=== PATIENT | male | born 1955 | race Caucasian/White ===

== ENCOUNTER 2017-06-16 10:19 | Inpatient (IN) | payer BC ==
[2017-06-16 12:49] LABS: #Eosinphils 0.1 thou/uL (0.0-0.7); #Lymphocytes 1.1 thou/uL (1.20-3.40); #Monocytes 0.3 thou/uL (0.11-0.59); #Neutrophils 2.9 thou/uL (1.40-6.50); %Basophils 0.1 % (0.0-1.0); %Eosinophils 2.5 % (0.0-10.0); %Lymphocytes 25.4 % (21.0-51.0); %Monocytes 6.4 % (0.0-10.0); Mean Platelet Volume 6.2 fL (7.4-10.4); Red Blood Cell (RBC) Count 4.98 mill/uL (4.70-6.10); White Blood Cell (WBC) Count 4.4 thou/uL (4.8-10.8)
[2017-06-16 12:54] LABS: ALT (SGPT) 12 U/L (8-55); AST (SGOT) 21 U/L (5-34); Alkaline Phosphatase 90 U/L (40-150); Anion Gap 7 mmol/L (10-20); BUN (Urea Nitrogen) 7 mg/dL (8.4-25.7); Bilirubin, Total 0.4 mg/dL (0.2-1.2); Calc. Creatinine Clearance 0 mL/min (70-130); Calcium 9.1 mg/dL (7.8-10.44); Carbon Dioxide 31 mmol/L (23-31); Chloride 106 mmol/L (98-107); Estimated GFR-MDRD Greater than 90; Globulin 2.9 g/dL (2.4-3.5); Protein, Total 6.9 g/dL (5.8-8.1)
--- NOTE | 2017-06-16 13:22 | RAD ---
PORTABLE CHEST 1 VIEW: Date: 06/16/17 Time: 1300 hours HISTORY: Syncope. FINDINGS: Comparison made with exam of 05/04/17. The heart size is normal. The lungs are well expanded without confluent areas of consolidation, pneu mothorax, or pleural effusions. IMPRESSION: No radiographic evidence of acute cardiopulmonary process. POS: [facility]
[2017-06-16 13:26] LABS: Prothrombin Time 12.4 SEC (12.0-14.7)
[2017-06-16 13:32] LABS: Troponin I Less than 0.010 ng/mL (< 0.028)
[2017-06-16 13:33] LABS: PTT 27.6 SEC (22.9-36.1)
[2017-06-16 14:06] LABS: Bilirubin Negative (Negative); Blood, Urine Negative (Negative); Glucose, Urine (Dipstick) Negative (Negative); Ketone, Urine Negative (Negative); Nitrite Negative (Negative); Protein, Urine (Dipstick) Negative (Neg-Trace); Urobilinogen 0.2 mg/dL (0.2-1.0)
[2017-06-16] MEDS ORDERED: Ondansetron HCl/PF 4 MG/2 ML Vial ONE (14:09)
[2017-06-16] MEDS ORDERED: Morphine 2 MG/ML SYRINGE ONE (14:09)
[2017-06-16] MEDS ORDERED: Metoclopramide HCl 10 MG/2 ML VIAL ONE (14:09)
--- NOTE | 2017-06-16 14:13 | CT ---
NONCONTRAST HEAD CT: Date: 06/16/17 HISTORY: Syncope. COMPARISON: 05/09/17, 05/06/17, and 05/04/17. TECHNIQUE: Noncontrast head CT is performed from skull base to skull vertex. FINDINGS: Postsurgical changes of the right calvarium are again demonstrated. There is subtle hyperdensity not ed on the right frontotemporal convexity which may represent a small amount of residual subdural blo od. Small focus of air attenuation is noted along the right frontal convexity. There is a small focu s of air in the frontal horn of the right lateral ventricle. The ventricular system is prominent. No midline shift. Basilar cisterns are patent. There are malacic and probable gliotic changes of the r ight frontal lobe. Remainder of the cerebrum is unremarkable. The previously noted LEAD NITRATE PROCESSOR shunt catheter is no longer evident. There is a hypodensity anterior to the right mastoid air cells measuring 1.8 x 1.6 cm. There is swel ling of the right temporal scalp, as well as swelling of the right masseter muscle. There is partial opacification of the right mastoid air cells. IMPRESSION: 1. Prominent of the ventricular system. There is concern for hydrocephalus. 2. Hypodensity with mild peripheral enhancement anterior to the right mastoid air cell which may re present a small focus of fat. This fat may have initially been in the calvarium and is now herniated outside the calvarium. 3. Small amount of subdural blood involving the right frontotemporal and parietal convexity, as wel l as along the tentorium. 4. Opacification of the right mastoid air cells. Results of study discussed with Dr. Fournier on 06/16/17 at 1328 hours. CODE CR. POS: [facility]
[2017-06-16] MEDS ORDERED: Ondansetron HCl/PF 4 MG/2 ML Vial IVP PRN (17:00)
[2017-06-16] MEDS ORDERED: Ondansetron ODT 4 MG TAB SL PRN (17:00)
[2017-06-16] MEDS: D5 1/2 NS w/20 mEq KCL 1,000 ML IV SCH (17:14)
[2017-06-16] MEDS ORDERED: CEFAZOLIN 2 GM in Sodium Chloride 0.9% 100 ML IVPB SCH (18:45)
[2017-06-16 19:00] VITALS: BMI 29.6
[2017-06-16] MEDS ORDERED: CEFAZOLIN/Water 2 GM/20 ML SYRINGE SLOW IVP SCH (19:00)
[2017-06-16 20:05] LABS: PTT 27.3 SEC (22.9-36.1); Prothrombin Time 13.1 SEC (12.0-14.7)
--- NOTE | 2017-06-16 20:13 | CT ---
CT BRAIN LAB STUDY: Technique: 1.25 axial images are obtained through the brain. Brain window images obtained. FINDINGS: Images demonstrate extensive right sided craniotomy changes. Right frontal lobe surgical changes see n. There is now some gas in the frontal horn of the right lateral ventricle. A right sided epidural collection of post-operative fluid is seen. Some post-operative fat packing is seen in the right suprazygomatic studio musician space. In addition, t here is opacification over the right mastoid air cells. Appearance is not significantly changed sinc e previous exam from earlier in the day. POS: [facility]
--- NOTE | 2017-06-16 23:15 | HP ---
HISTORY OF PRESENT ILLNESS: Mr. Negron is a 62-year-old male who I saw in his room today. He presented this evening with syncopal episode that he had this morning after he woke from sleeping, he rolled onto the left side and a syncopal episode and dizziness occurred. He reports weakness and headache. He has had a prior history of subarachnoid hemorrhage in January from a fall from standing when hit his head on the concrete in which he required a craniotomy which was on the right side on 01/24/2017. He was sent to [facility] in [place] for rehabilitation and then on 05/08/2017, he had a reopening of the cranial incision and placement of the external ventricular drain and repair of middle fossa cerebrospinal fluid leak with fascia kena harvest and bone graft, cranioplasty with the patient's [place] skull. He did well for about 3 weeks and then developed started having symptoms in which Dr. Drake placed a Typanostomy tube in the right ear. Today, he had fluid coming from his right ear as well as a pocket of fluid underneath of the skin on the right side at the level of the ear. After he woke up with a syncopal episode this morning, he contacted Dr. Drake in [place] and he was told to come to the emergency department for further evaluation. He denies any seizure activity. Denies any chest pain. The patient admits to headache and describes the syncopal episode is a blackout. Neurosurgery was consulted as Mr. Negron is one of our patients and for further evaluation. REVIEW OF SYSTEMS: A 10-point review of systems is completed. The patient has positive headaches. Reports dizziness. Reports 2 bouts of syncopal episodes. All other review of systems is negative. Also, he reports pain to the right leg over the fascia kena graft. All other review of systems is negative, unless stated in the above HPI. PAST MEDICAL HISTORY: Includes hypothyroidism, hypertension, malignancy, tonsillar cancer, skull fracture with fluid with hydrocephalus. PAST SURGICAL HISTORY: Bilateral lens replaced in 10/2014, surgical appendectomy, tonsillectomy, craniotomy on the right, right wrist surgery and placement of Tympanostomy tube in the right ear. PSYCHIATRIC HISTORY: Depression. SOCIAL HISTORY: The patient drinks everyday less than 5 drinks per day. Currently uses tobacco every day. ALLERGIES: No known drug allergies. CURRENT MEDICATIONS: 1. Amantadine HCL 100 mg oral. 2. Gabapentin 300 mg oral. 3. Levothyroxine 100 mcg oral. 4. Pantoprazole delayed release 40 mg oral. 5. Docusate sodium 100 mg oral. 6. Mirtazapine 50 mg oral. 7. Senna 8.6 mg oral. Please reconcile these medications that the patient as I do not believe they have been updated. PHYSICAL EXAMINATION: VITAL SIGNS: Reviewed and are stable. GENERAL: The patient is alert and oriented x4, appears in no acute distress. HEENT: Normocephalic and atraumatic. Hearing is intact. Moist mucous membrane. There is some scarring over the right head where the craniotomy incision is. There is a small amount of swelling at the right ear. EYES: Pupils are equal and reactive to light. Extraocular muscles are intact. Sclerae is white, nonicteric. NECK: Trachea midline. No carotid bruits. No meningeal signs. Normal range of motion of the neck. RESPIRATORY: The patient has bilateral symmetric chest rise. Appears to have no shortness of breath. CARDIOVASCULAR: The patient has regular rate and rhythm, no murmurs, clicks or gallops. He has no distal cyanosis or clubbing. ABDOMEN: Bowel sounds are normal. No distention. No blood, no peritoneal signs. BACK: Normal to inspection. No tenderness. EXTREMITIES: Upper extremity strength and lower extremity strength are normal bilaterally. No distal cyanosis or clubbing, no calf tenderness. On the lower extremity, there is some tenderness over the incision site. An ultrasound has been completed at [facility] that showed seroma under the incision. NEUROLOGIC: Cranial nerves II-XII are grossly intact. Speech is fluent. He answers my questions appropriately. SKIN: Normal in color. Dry skin and temperature. IMAGING: Radiology report shows a small subdural hemorrhage on the right side, hydrocephalus and swelling in the scalp. ASSESSMENT: Mr. Negron is a 62-year-old male status post right-sided cranioplasty, placement of right-sided Tympanostomy tube with acute hydrocephalus and swelling of the scalp over the right ear. PLAN: We will admit Mr. Negron and plan on BrainLAB-assisted ventriculoperitoneal shunt tomorrow afternoon. We will get consents. We will get a BrainLAB protocol CT brain without contrast. We will keep him comfortable overnight and he can have a regular diet until midnight tonight and then n.p.o. There are any further questions, please feel free to contact Neurosurgery. MARYLIN
[2017-06-17] MEDS: D5 1/2 NS w/20 mEq KCL 1,000 ML IV SCH (00:54)
[2017-06-17] MEDS ORDERED: Morphine 2 MG/ML SYRINGE SLOW IVP PRN (02:59)
--- NOTE | 2017-06-17 06:34 | PRG ---
DATE OF SERVICE: 06/17/2017 I personally interviewed and examined the patient, reviewed records and imaging and agree with docum entation of Edmundo Alcazar PA-C, dated 06/16/2017. Briefly, Nigel Negron is a 62-year-old gentleman who has been a patient in our neurosurgery clinic since a traumatic brain injury in the spring of this year. He required a craniectomy and eventually was taken back to the operating room to replace his bone flap. He has been recovering from that se cond surgery. He had fluid in the inner ear and middle fossa dehiscence from the skull fracture, so at the time of the bone flap replacement we used bone graft and multiple tissue layers to try to se al it. More recently he had a tympanostomy tube placed in the right. Mr. Negron noticed some fluid coming out of tympanostomy tube recently. He had a little bit more fluid than normal yesterday when he got up and he experiences extreme vertigo. The vertigo made him pass out and he came to the hospital. CT examination of the brain showed ventriculomegaly, some ex traaxial fluid collection in the area of the cranioplasty, but good aeration of the middle ear. Jewel rosurgery was consulted. Overnight Mr. Negron has felt well. He has not had too much drainage from the right ear. He does tell me that he has had some fluid collecting under the scalp since his cranioplasty a number of we eks ago. His therapist tells him he is making excellent progress. The clinical scenario is a difficult one. His ventricles are quite a bit larger than they were at t he time of his original injury, increased intracranial pressure from poor CSF resorption system coul d be putting him at risk for the middle fossa repair not healing, fluid in the middle ear may have p rompted the tympanostomy tube and the CSF leak or bony dehiscence the middle fossa could be exacerba ting his vertigo. Certainly the extraaxial fluid collection could be CSF. All of these problems mi ght be ameliorated with placement of a ANGULAR DEVELOPER shunt. However, shunt placement carries its own risk. In balance, I think it is a good option to try ventriculoperitoneal shunting to see if decreasing the intracranial pressure and the CSF pressure will allow sealing of any temporal bone openings. Mr. Uday thompson just wants to get better and if that involves placement of a ventriculoperitoneal shunt then he is in favor of it. INFORMED CONSENT: I discussed indications, risks, benefits, and alternatives of ventriculoperitonea l shunting. The risks discussed included, but were not limited to bleeding, infection, brain damage , seizures, stroke, paralysis, continued CSF leak, delayed infection, shunt malfunction, the need fo r shunt replacement, a bowel perforation, peritonitis and cardiopulmonary complications of anesthesi a and . He understands the risks and wants to proceed. We will take Mr. Negron to the operating room this morning for Brainlab-assisted stereotactic plac ement of ventriculoperitoneal shunt.
[2017-06-17] MEDS ORDERED: FLU VACC QS2017-18 36 mo. & older 0.5 ML SYRINGE IM ONE (09:00)
[2017-06-17] MEDS ORDERED: Thrombin 5000 UNITS/5 ML VIAL ONE (09:54)
[2017-06-17] MEDS ORDERED: Sodium Chloride 0.9% 10 ML ONE (09:54)
[2017-06-17] MEDS ORDERED: Bacitracin Zinc Ointment 30 gm TUBE ONE (09:54)
[2017-06-17] MEDS ORDERED: Fentanyl 100 MCG/2 ML VIAL ONE ×2 (10:06→14:25)
[2017-06-17] MEDS ORDERED: CEFAZOLIN/Water 2 GM/20 ML SYRINGE ONE (10:39)
[2017-06-17] MEDS ORDERED: Fentanyl 250 MCG/5 ML VIAL ONE (10:52)
[2017-06-17] MEDS ORDERED: Vancomycin HCl 20 MG, Gentamicin (PEDI) 8 MG, Admixture Fee 1 EACH in Sodium Chloride 0... FS SCH (12:00)
[2017-06-17] MEDS ORDERED: Acetaminophen 325 MG TAB PO PRN (13:42)
[2017-06-17] MEDS ORDERED: tiZANidine HCl 4 MG TAB PO PRN (13:42)
[2017-06-17] MEDS ORDERED: Acetaminophen/Codeine 30-300mg Tablet PO PRN (13:42)
[2017-06-17] MEDS ORDERED: Bisacodyl 10 MG SUPP PR PRN (13:42)
[2017-06-17] MEDS ORDERED: Promethazine HCl 25 MG/ML VIAL SLOW IVP PRN (14:16)
[2017-06-17] MEDS ORDERED: Lidocaine 1% PF 5 ML VIAL ONE (14:16)
[2017-06-17] MEDS ORDERED: hydrALAZINE 20 MG/ML VIAL ONE ×2 (14:16→15:03)
[2017-06-17] MEDS ORDERED: Ondansetron HCl/PF 4 MG/2 ML Vial IVP PRN (14:16)
[2017-06-17] MEDS ORDERED: Promethazine HCl 25 MG/ML VIAL IM PRN (14:16)
[2017-06-17] MEDS ORDERED: Propofol 200 MG/20 ML VIAL ONE (14:16)
[2017-06-17] MEDS ORDERED: Labetalol HCl 100 MG/20 ML VIAL ONE ×2 (14:16→14:18)
[2017-06-17] MEDS ORDERED: Glycopyrrolate 0.2 MG/ML 5 ML SYRINGE ONE (14:16)
[2017-06-17] MEDS ORDERED: PHENYLEPHRINE-NS 100 MCG/ML 10 ML SYRINGE ONE (14:16)
[2017-06-17] MEDS ORDERED: Cefepime 1 GM VIAL ONE (14:16)
--- NOTE | 2017-06-17 14:26 | OP ---
DATE OF PROCEDURE: 06/17/2017 SURGEON: Mirna Vivas M.D. CHILDREN'S MINISTRY DIRECTOR: Edmundo Alcazar PA-C. PREOPERATIVE INDICATION: Prevent neurological deterioration. PREOPERATIVE DIAGNOSES: Posttraumatic hydrocephalus, possible continued middle fossa CSF leak, extr a-axial fluid collection, ventriculomegaly. POSTOPERATIVE DIAGNOSES: Posttraumatic hydrocephalus, possible continued middle fossa CSF leak, ext ra-axial fluid collection, ventriculomegaly. Right side fluid collection from fascia kena graft tru vest. OPERATIVE PROCEDURE: BrainLAB stereotactic assisted placement of ventriculoperitoneal shunt. Steri le tapping a fluid collection and wrapping of thigh. PREOPERATIVE MEDICATIONS: Ancef 2 grams IV. DRAIN NUMBER: Zero. DRAIN TYPE: None. OPERATIVE DICTATION: The patient was brought to the operating room. General endotracheal anesthesi a was induced. The patient was placed supine on the operating table with a slight bump under the ri ght shoulder and head turned gently to the left. The head was immobilized in a Crain rush clinical trial head. Using the BrainLAB protocol, preoperative CT scan service matching technique and the [employer] system, we generated 3 dimensional stereotactic spacer on the patient's head for navigation. We checked our registration with surface landmarks and found that accurate. Hair was removed from the right side of the scalp, neck, the chest and the abdomen. Hair was removed from the thigh all with electric clippers. The abdomen, chest, neck, and right side of the scalp was sterilely prepped and draped. We opened a linear incision at the parietooccipital region on the right side. We controlle d bleeding with bipolar and monopolar cautery. We dissected to the skull and then used a high speed perforating bit to place a bur hole. We waxed the edges of the bur hole and coagulated the dura. We turned our attention to passing the peritoneal portion of the shunt. The patient had previous ne ck irradiation for tonsillar cancer. We needed to pass a posterior to the irradiated skin over the clavicle and then over the chest to the midline in the abdomen. We did this carefully from the cran ial incision to horizontal incision on the clavicle and from the clavicle incision to a midline subx iphoid area where we made subxiphoid incision. After the tunneling was done, we passed the peritone al catheter from the cranial incision all the way to the abdominal incision. We then opened the peritoneum through our midline and subxiphoid incision, we incised the fascia in the midline, we placed a self-retaining retractor. We then brought up a loop of peritoneum between 2 hemostats. We cut the edge of the peritoneum, placed the hemostats on the edge of the peritoneum and a pursestring silk suture. We irrigated there and brought back to the cranial incision. Using the navigation system, we generated the trajectory for ventricular shunt, ventricular catheter place ment. We used this angle for passing our ventricular catheter. We coagulated the edges of the dura . We opened in a cruciate fashion with a 15 blade knife and coagulated back the edges. Using our p lanned trajectory, we passed the peritoneal catheter through 3.5 cm of parenchyma into the occipital horn of right lateral ventricle. We then removed the stylette and advanced to a depth of about 9-1 0 cm. There was brisk CSF flow. We connected to a Delta bur hole valve to the ventricular catheter and reinforced that connection with silk suture. Before connecting the valve, we treated our syste m with antibiotics by placing 2 mL of sterile saline into the ventricular catheter, carrying 10 mg o f vancomycin and 4 mg of gentamicin. Just after placing the antibiotics, we attached our bur hole v alve, reinforced that attachment and then connected the distal portion of the valve to the peritonea l catheter and reinforced that connection with silk sutures as well. We tacked the edges of the luzmaria ve down to the periosteum. We irrigated our cranial incision with bacitracin irrigation. We closed this in anatomic layers. We closed shoulder incision in anatomic layers. At the abdominal incisio n, CSF flow from the distal portion of the peritoneal catheter and passed the catheter into the charley toneal space. We tied our silk pursestring suture around it after removing hemostats and we closed abdominal incision in anatomic layers. Before closure V2, V3 incisions, we treated them with vancom ycin powder. Sterile dressings were applied. After undraping the cranial shoulder and abdominal incisions, we prepped the thigh. An 18 gauge nee dle passed into the subdural fluid collection and the fluid was removed. We placed a sterile dressi ng over the needle entry site and then wrapped the leg with Josue bandage. This was a clean case and no contamination.
[2017-06-17] MEDS ORDERED: hydrALAZINE 20 MG/ML VIAL SLOW IVP PRN (15:14)
[2017-06-17] MEDS: Morphine 2 MG/ML SYRINGE SLOW IVP PRN ×3 (16:56→21:35)
[2017-06-17] MEDS: Gabapentin 300 MG CAP PO SCH ×2 (16:56→20:16)
[2017-06-17] MEDS: Docusate 100 MG CAP PO SCH (20:16)
[2017-06-17] MEDS: Mirtazapine 15 MG TAB PO SCH (20:16)
[2017-06-17] MEDS: Melatonin 3 MG TAB PO SCH (21:11)
[2017-06-18] MEDS: Vancomycin HCl 1.5 GM in Sodium Chloride 0.9% 250 ML 300 ML IVPB SCH ×2 (00:39→12:15)
[2017-06-18] MEDS: Morphine 2 MG/ML SYRINGE SLOW IVP PRN ×7 (04:11→21:46)
[2017-06-18] MEDS: Sodium Chloride 0.9% 1,000 ML IV SCH ×4 (06:10→17:25)
--- NOTE | 2017-06-18 07:33 | PRG ---
DATE OF SERVICE: 06/18/2017 I saw Nigel Negron this morning in his hospital bed. He is 1 day out from our BrainLAB stereotacti c assisted placement of ventriculoperitoneal shunt and tapping of the fluid collection in the latera l thigh. Postoperatively noted some abdominal pain. This morning he is in significant pain. He sa ys he is not passing gas. The cranial and shoulder incision feel fine. On examination, there is so me guarding, especially the right-sided abdominal musculature. There is no rebound on the left. Th e right-sided muscles are tight enough that eliciting no rebound is less reliable. His neurological examination is stable. My plan for Mr. Negron is to get a CT of the abdomen today. There is going to be some air from campos ving his peritoneum opened, but we will see if there is any unusual findings. We will also get to s ee the course of the ventriculoperitoneal shunt. I may have General Surgery visit him if there are findings on the CT scan that look concerning.
--- NOTE | 2017-06-18 07:39 | HP ---
DATE OF SERVICE: 06/18/2017 Mr. Negron is a 62-year-old male I saw in his room this morning. He is status post sterotactic pl acement of a ventriculoperitoneal shunt for hydrocephalus and aspiration of a hematoma on the right leg. Mr. Negron was in moderate amount of pain last night. Postoperatively, he required several doses of morphine. The majority of his pain is in his abdomen. This morning we will get a CT scan of his abdomen without contrast. His vital signs overnight have been stable and there are no new ne urologic deficits on exam. He is able to answer my questions appropriately. He has not been able t o ambulate yet; however, we will work on that today. I will contact Radiology. Yesterday we are ab le to get about 5 mL of gelatinous hematoma out of the seroma in his right thigh. I will contact [facility] today and take him down and do an aspiration under ultrasound guidance of the hematoma. He can work with physical therapy today. If there are any other questions, please feel free to contact Neurosurgery.
[2017-06-18] MEDS: Levothyroxine Sodium 100 MCG TAB PO SCH (09:25)
[2017-06-18] MEDS: Senokot 8.6 MG TAB PO SCH (09:25)
[2017-06-18] MEDS: Amantadine HCl 100 mg Capsule PO SCH (09:25)
[2017-06-18] MEDS: Pantoprazole 40 MG GRANULES PACKET PO SCH (09:26)
[2017-06-18] MEDS: Docusate 100 MG CAP PO SCH ×2 (09:26→21:15)
[2017-06-18] MEDS: Gabapentin 300 MG CAP PO SCH ×3 (09:26→21:15)
--- NOTE | 2017-06-18 09:27 | CT ---
ABDOMEN CT WITHOUT IV CONTRST: History: 62-year-old male with abdominal pain following SHIPFITTERS SUPERVISOR shunt placement yesterday. FINDINGS: There are some small pleural effusions and some pleural based parenchymal changes, evidence for subs egmental atelectasis. There is a ventriculoperitoneal shunt tube which has been placed overlying the anterior lateral aspect of the liver in the right upper quadrant. There is some minimal free intrap eritoneal air. This is presumed to be related to the recent surgery. Small hiatal hernia. Visualized liver, gallbladder, pancreas, spleen, adrenal glands are unremarkable. No evidence for significant free intraperitoneal fluid or retroperitoneal hematoma. IMPRESSION: Ventriculoperitoneal shunt tube placed lying in the anterior right upper quadrant partially between the liver and right hemidiaphragm. Minimal pleural and parenchymal opacities in the lung bases possi trevin subsegmental atelectasis and pneumonitis. Small hiatal hernia. No evidence for significant free intraperitoneal fluid or retroperitoneal hematoma. POS: [facility]
--- NOTE | 2017-06-18 15:56 | ULT ---
EXAM: SOFT TISSUE ULTRASOUND 06/18/17 HISTORY: Right thigh seroma. Status post fascia kena graft. COMPARISON: None. FINDINGS: Static images of the right thigh are performed. There is a hypoechoic echotexture lesion measuring 2 0 x 3 cm. The majority of this lesion has a complex echotexture suggesting a hematoma, rather than a simple seroma. Given the complexity, ultrasound guided fine needle aspiration is not warranted or r ecommended at this time. IMPRESSION: Probable hematoma in the right thigh. The findings were reviewed with Dr. Ortega Cain's PA who was present during the examination, 06/18/17 at 11:06 a.m. Code CR POS: [facility]
--- OUTSIDE RECORDS SUMMARY | 2017-06-18 18:27 | XMS | Clinical Summary ---
:1955 Author Organization [facility] Address [address] [place] [address] Phone Care Team Providers Name Role Phone , Primary Care Provider Unavailable Allergies No Known Allergies Current Medications Prescription Sig. Disp. Refills Start Date End Date Status aspirin 81 MG EC tablet Take 81 mg by mouth Active daily. bromfenac (PROLENSA) 0.07 Apply to eye(s) Active % Drop daily. levothyroxine (SYNTHROID, Take 100 mcg by Active LEVOTHROID) 100 MCG mouth Every morning tablet on an empty stomach. loteprednol (LOTEMAX) 0.5 1 drop 4 (four) Active % ophthalmic suspension times daily. lovastatin (MEVACOR) 20 Take 20 mg by mouth Active MG tablet nightly. polymyxin B 1 drop. Active sulf-trimethoprim (POLYTRIM) 10,000 unit- 1 mg/mL Drop Active Problems Not on file Social History Tobacco Use Types Packs/Day Years Used Date Never Smoker Alcohol Use Drinks/Week oz/Week Comments Yes 12 Cans of beer 7.2 Sex Assigned at Date Recorded Not on file Last Filed Vital Signs Vital Sign Reading Time Taken Blood Pressure 140/90 11/13/2016 11:30 AM CDT Pulse 71 11/13/2016 11:30 AM CDT Temperature 36.8 C (98.2 F) 11/13/2016 11:11 AM CDT Respiratory Rate 15 11/13/2016 11:30 AM CDT Oxygen Saturation 97% 11/13/2016 11:30 AM CDT Inhaled Oxygen Concentration - - Weight 90.7 kg (200 lb) 11/12/2016 11:27 AM CDT Height 172.7 cm (5' 7.99") 11/12/2016 11:27 AM CDT Body Mass Index 30.42 11/12/2016 11:27 AM CDT Plan of Treatment Not on file Implants Implanted Type Area Machinist First Class Device Expiration Model / Identifier Date Serial / Lot Iol Acrysof Toric [id number] - [id number] Ophthalmology Left: [facility]:SURG 04/24/2019 [id number] / Implanted:Qty: 1 on 10/16/2016 by Mario Marie MD Eye / [id number] Iol Acrysof Toric [id number] - [id number] Ophthalmology Right: [facility]:SURG 11/22/2020 [id number] / Implanted:Qty: 1 on 11/13/2016 by Mario Marie MD Eye [id number] / N/A Results Not on filefrom Last 3 Months
[2017-06-18] MEDS: Mirtazapine 15 MG TAB PO SCH (21:14)
[2017-06-18] MEDS: Melatonin 3 MG TAB PO SCH (21:15)
[2017-06-19] MEDS: Sodium Chloride 0.9% 1,000 ML IV SCH ×2 (04:36→11:38)
--- NOTE | 2017-06-19 06:31 | PRG ---
DATE OF SERVICE: 06/19/2017 Mr. Negron is a 62-year-old male who I saw in his room this morning. Yesterday I went with him do wn to ultrasound, had a soft tissue ultrasound of the right hematoma/seroma on his right leg. He wa s advised not to put a needle in it to drain it, so I wrapped with an leonela band tightly so that it wo uld help to resolve over time. His vital signs overnight have been stable. He is having less abdom inal pain this morning than he did yesterday. I will have physical therapy see him today and hopefu lly get him to walk around as much as possible. If there are any further questions, please feel free to contact Neurosurgery.
--- NOTE | 2017-06-19 06:50 | PRG ---
DATE OF SERVICE: 06/19/2017 Mr. Negron is 2 days out from placement of a ventriculoperitoneal shunt. The abdominal pain he campos d yesterday has improved markedly. The thigh is wrapped and it feels a bit better with the wrap on. Still pain control is requiring some prescription strength pain medication. He is ambulatory and he is looking forward to breakfast this morning. The return of his hunger is a good sign as well. Mrs. Negron is nervous about taking him home with regards to pain control. Once he is taking oral analgesics and has reasonable pain control on those he can be discharged. That could be as early a s afternoon today.
[2017-06-19] MEDS: Levothyroxine Sodium 100 MCG TAB PO SCH (09:04)
[2017-06-19] MEDS: Senokot 8.6 MG TAB PO SCH (09:04)
[2017-06-19] MEDS: Gabapentin 300 MG CAP PO SCH ×2 (09:04→14:16)
[2017-06-19] MEDS: Amantadine HCl 100 mg Capsule PO SCH (09:04)
[2017-06-19] MEDS: Pantoprazole 40 MG GRANULES PACKET PO SCH (09:04)
[2017-06-19] MEDS: Docusate 100 MG CAP PO SCH (09:05)
[2017-06-19] MEDS: Acetaminophen/Codeine 30-300mg Tablet PO PRN ×2 (09:05→14:16)
[2017-06-19 11:43] VITALS: BP 114/72; TEMP 97.2
== END 2017-06-19 14:50 | disposition home or self-care (01) | DRG 32 ==
LOC: ERS 10:19 → SURG B 16:43
PROVIDERS: ADMIT Neurological Surgery; ATTEND Neurological Surgery
PROC: 00163J6 Bypass Cerebral Ventricle to Peritoneal Cavity with Synthetic Substitute, Percutaneous Approach (ICD-10-PCS; principal; 2017-06-17)
PROC: 0J9C3ZZ Drainage of Pelvic Region Subcutaneous Tissue and Fascia, Percutaneous Approach (ICD-10-PCS; 2017-06-17)
DX: G91.3 Post-traumatic hydrocephalus, unspecified (principal); L76.34 Postprocedural seroma of skin and subcutaneous tissue following other procedure; G93.89 Other specified disorders of brain; E03.9 Hypothyroidism, unspecified; I10 Essential (primary) hypertension; Z85.89 Personal history of malignant neoplasm of other organs and systems; F32.9 Major depressive disorder, single episode, unspecified; F17.210 Nicotine dependence, cigarettes, uncomplicated; W18.30XA Fall on same level, unspecified, initial encounter; Z91.81 History of falling; Y92.019 Unspecified place in single-family (private) house as the place of occurrence of the external cause; Z87.820 Personal history of traumatic brain injury; R42 Dizziness and giddiness; Z96.89 Presence of other specified functional implants; R55 Syncope and collapse
CPT/HCPCS: 36415; 70450; 71010; 74150; 76999; 80053; 81003; 82553; 84484; 85025; 85610; 85730; 93005; 96361; 96365; 96375; A4216; G8978-GP-CI; G8979-GP-CI; G8980-GP-CI; J0360; J0692; J1580; J2001; J2270; J2405; J2704; J2765; J3010; J3370; J3490; J7050

== ENCOUNTER 2017-08-05 13:39 | Outpatient (CLI) | payer BC ==
--- NOTE | 2017-08-05 15:51 | CT ---
CT HEAD WITHOUT CONTRAST 08/05/17 Multiple axial tomograms obtained through the head without IV enhancement. Comparison made to head CT of 06/16/17 and 05/06/17. Ventriculostomy tube has been place since the prior study. This tube enters via the posterior right p arietal lobe and enters the right lateral ventricle. The tip of the tube overlies the anterior horn o f the right lateral ventricle. There is mild prominence of the ventricles. Postop craniotomy changes on the right again noted. There is thickening and increased density involving the dura along the oper ative site. Small amount of pneumocephalus is present at the operative site and there is a tiny air p ocket in the anterior horn of the right lateral ventricle. No acute hemorrhage or mass effect. IMPRESSION: 1. Ventriculostomy catheter has been placed. There is mild ventricular prominence. 2. Postoperative changes again noted. Pneumocephalus as described. POS: [facility]
== END 2017-08-05 13:40 | disposition home or self-care (01) ==
LOC: TBSIIMAG 13:39
PROVIDERS: ATTEND Neurological Surgery
DX: G91.9 Hydrocephalus, unspecified (principal); S06.319D Contusion and laceration of right cerebrum with loss of consciousness of unspecified duration, subsequent encounter; Z98.2 Presence of cerebrospinal fluid drainage device
CPT/HCPCS: 70450

== ENCOUNTER 2017-09-02 13:29 | Emergency (ER) | payer BC ==
--- NOTE | 2017-09-02 14:25 | CT ---
HEAD CT NONCONTRAST: Comparison: 08-05-17 History: Headache. FINDINGS: Re-demonstration of right posterior parietal approach ventriculostomy with tip at the frontal horn ri ght lateral ventricle. Mild extraaxial hyperdensity overlying the right convexity remains. Mild intra ventricular air is again seen. There is no new mass effect or midline shift. Encephalomalacia of the right frontal lobe and right frontal parietal craniotomy again seen. IMPRESSION: Grossly stable head CT. There remains extraaxial density, which is thin and linear in configuration o verlying the right convexity, which could relate to small volume of extraaxial hemorrhage, and/or dur al hyperplasia. POS: [facility]
[2017-09-02 16:40] LABS: Bilirubin Negative (Negative); Blood, Urine Negative (Negative); Clarity CLEAR (Clear); Glucose, Urine (Dipstick) Negative (Negative); Leukocyte Negative (Negative); Nitrite Negative (Negative); Protein, Urine (Dipstick) Negative (Neg-Trace); Specific Gravity, Urine 1.016 (1.002-1.036); Urobilinogen 0.2 mg/dL (0.2-1.0); pH, Urine 5.5 (5.0-9.0)
[2017-09-02] MEDS ORDERED: Acetaminophen 500 MG TAB ONE (16:53)
[2017-09-02 17:08] LABS: #Eosinphils 0.1 thou/uL (0.0-0.7); #Monocytes 0.5 thou/uL (0.11-0.59); #Neutrophils 4.6 thou/uL (1.40-6.50); %Basophils 0.4 % (0.0-1.0); %Eosinophils 0.9 % (0.0-10.0); %Lymphocytes 16.6 % (21.0-51.0); %Monocytes 7.4 % (0.0-10.0); %Neutrophils 74.6 % (42.0-75.0); Hemoglobin 17.4 g/dL (14.0-18.0); Mean Corpuscular HGB CONC 34.1 g/dL (32.0-36.0); Mean Corpuscular Hemoglobin 29.6 pg (27.0-31.0); Platelet Count 249 thou/uL (130-400); RBC Distribution Width 14.1 % (11.5-14.5); Red Blood Cell (RBC) Count 5.87 mill/uL (4.70-6.10); White Blood Cell (WBC) Count 6.2 thou/uL (4.8-10.8)
[2017-09-02 17:14] LABS: INR-International Normal Ratio 0.9; PTT 29.7 SEC (22.9-36.1); Prothrombin Time 12.6 SEC (12.0-14.7)
[2017-09-02] MEDS ORDERED: Aspirin/APAP/Caffeine Tab (Excedrin Migraine) PO SCH (17:15)
[2017-09-02 17:34] LABS: ALT (SGPT) 14 U/L (8-55); AST (SGOT) 13 U/L (5-34); Albumin 4.3 g/dL (3.4-4.8); Alkaline Phosphatase 82 U/L (40-150); Anion Gap 12 mmol/L (10-20); BUN (Urea Nitrogen) 10 mg/dL (8.4-25.7); Bilirubin, Total 0.4 mg/dL (0.2-1.2); Calc. Creatinine Clearance 0 mL/min (70-130); Calcium 9.4 mg/dL (7.8-10.44); Carbon Dioxide 25 mmol/L (23-31); Chloride 105 mmol/L (98-107); Estimated GFR-MDRD Greater than 90; Globulin 2.9 g/dL (2.4-3.5); Glucose 113 mg/dL (80-115); Protein, Total 7.2 g/dL (5.8-8.1); Sodium 138 mmol/L (136-145)
--- NOTE | 2017-09-02 19:31 | RAD ---
SHUNTOGRAM: 09/02/17 HISTORY: Headache. FINDINGS/IMPRESSION: Postop changes of right craniotomy are seen. There is a right sided ventriculoperitoneal shunt with t he caudal end to the right of midline. The shunt tubing descends along the right side of the neck int o the chest and the right side of the abdomen, loops in the distal abdomen/pelvis with tip directed s uperiorly in the left lower quadrant. The shunt tubing is intact. The heart size is normal. The lungs are well expanded and clear. There is fecal material in the colon . The bowel gas pattern is unremarkable. There are degenerative changes in the spine. POS: [facility]
--- NOTE | 2017-09-03 06:08 | CON ---
DATE OF CONSULTATION: 09/02/2017 HISTORY OF PRESENT ILLNESS: Mr. Negron is a 62-year-old male, who presents tonight with dizziness and headache for the last 3 days. He had a ventriculoperitoneal shunt placed by Dr. Vivas on and today's CT scan of the head looks similar to that of the CT scan of the head on 7. The shuntogram was performed and shows it is working well. He has no significant lab values on e xam and no new neurologic deficits on exam. He has a history of a craniotomy for subdural hematoma a nd a cranioplasty with Neurosurgery in which he developed a hydrocephalus thereafter. The THREAD SPOOLER shunt w as placed for the hydrocephalus. Tonight CT of the brain is negative and shows shunt with good place ment. ALLERGIES: No known drug allergies. CURRENT MEDICATIONS: No medications recorded. PAST MEDICAL HISTORY: Includes endocrine disease, hypothyroidism, hypertension, tonsillar cancer, sk ull fracture with hydrocephalus, ventriculoperitoneal shunt placed on 06/17/2017. PAST SURGICAL HISTORY: Bilateral lens replaced on 10/2016, appendectomy, tonsillectomy, craniotomy o n 01/25/[address] Vivas. PAST PSYCHIATRIC HISTORY: Depression. SOCIAL HISTORY: The patient drinks every day, less than 5 drinks per day. Denies any drug use. He does not use tobacco. REVIEW OF SYSTEMS: The patient reports headache. He reports dizziness with signs of vertigo with th e room spinning. These have been going on for the last 3 days. He also has right-sided muscle spasm s. All other review of systems is negative except for that stated in the above HPI. PHYSICAL EXAMINATION: VITAL SIGNS: Blood pressure was 150/93, pulse 82, respirations 18, temperature 98.7, pain is 8, O2 s ats 100% on room air. GENERAL: The patient appears nontoxic. He is alert and oriented to person, place, and time. GCS of 15. HEENT: Head is normocephalic, atraumatic. Hearing is intact. Moist mucous membranes. Trachea is m idline. EYES: Pupils are equal and reactive to light. Extraocular muscles are intact. Sclerae is white, no nicteric. NECK: The patient has normal range of motion in the neck. His trachea is midline. RESPIRATORY: The patient has bilateral symmetric chest rise and has no shortness of breath. CARDIOVASCULAR: The patient has regular rate and rhythm. EXTREMITIES: No distal cyanosis or clubbing noted. He has +2 pulses in the upper and lower extremit ies bilaterally in the radial artery and the lower posterior tibial pulses are +2. Capillary refill was normal. Upper extremity exam includes findings of normal range of motion, normal strength. Lowe r extremity, there is no dermatomal sensory loss. He has normal strength in the lower extremity and normal range of motion. NEUROLOGIC: Cranial nerves II through XII are grossly intact. Speech is fluent, answers my question s appropriately. GCS of 15. There are no focal sensory deficits or motor deficits. IMAGING: CT shows grossly stable head CT, remains extra axial density, it was thin and linear in cur vature curved over the right convexity, which could related to small volume extraaxial hemorrhage or dural hyperplasia. A shuntogram shows postoperative changes of right craniotomy. There is right-lilian ed ventriculoperitoneal shunt with caudal end to the right of midline. The shunt tubing descends garo ng the right side of the neck into the chest and the right side of the abdomen, loops in the distal a bdomen and pelvis with tip directed superiorly in the left lower quadrant. The shunt tubing is intac t and the heart size is normal. Lungs are well expanded and clear. ASSESSMENT: Nigel Negron is a 62-year-old male with history of shunt placement in 05/2017. PLAN: The shuntogram shows that there is continuity in the shunt. The size of ventricles and change in that size on clinical exam are normal. The shunt I am able to pump, which shows it is functionin g well. The ventricles are the same size since 07/2017, so it is unlikely that the shunt is not work ing. I will arrange an office visit in 3 weeks after he has stopped the new blood pressure medicatio ns. This is not a neurosurgical emergency, but if there is new neurologic deficits, please let us kn ow.
== END 2017-09-02 21:14 | disposition home or self-care (01) ==
LOC: ERS 13:29
DX: R51 Headache (principal); R42 Dizziness and giddiness; E03.9 Hypothyroidism, unspecified; I10 Essential (primary) hypertension; F32.9 Major depressive disorder, single episode, unspecified; F17.220 Nicotine dependence, chewing tobacco, uncomplicated
CPT/HCPCS: 36415; 70450; 75809; 80053; 81003; 85025; 85610; 85730; 87804

== ENCOUNTER 2017-10-19 11:56 | Observation (INO) | payer BC ==
[~2017-10-19 11:56] MED LIST: ISOVUE-370 76%-LOCM 1 ML ONE
[2017-10-19] MEDS ORDERED: Lorazepam 2 MG/ML VIAL ONE (12:15)
[2017-10-19] MEDS ORDERED: Acetaminophen 500 MG TAB ONE (12:15)
[2017-10-19] MEDS ORDERED: Metoclopramide HCl 10 MG/2 ML VIAL ONE (12:15)
[2017-10-19 12:38] LABS: #Eosinphils 0.1 thou/uL (0.0-0.7); #Lymphocytes 0.6 thou/uL (1.20-3.40); #Monocytes 0.3 thou/uL (0.11-0.59); #Neutrophils 9.2 thou/uL (1.40-6.50); %Basophils 0.3 % (0.0-1.0); %Eosinophils 0.5 % (0.0-10.0); %Lymphocytes 5.4 % (21.0-51.0); %Neutrophils 90.8 % (42.0-75.0); Hemoglobin 16.7 g/dL (14.0-18.0); Mean Corpuscular Hemoglobin 31.3 pg (27.0-31.0); Mean Corpuscular Volume 89.5 fl (80.0-94.0); Mean Platelet Volume 6.1 fL (7.4-10.4); Platelet Count 175 thou/uL (130-400); RBC Distribution Width 14.5 % (11.5-14.5); Red Blood Cell (RBC) Count 5.33 mill/uL (4.70-6.10); White Blood Cell (WBC) Count 10.1 thou/uL (4.8-10.8)
[2017-10-19 12:44] LABS: Lavender RECEIVED; Red RECEIVED
[2017-10-19 12:45] LABS: Prothrombin Time 13.2 SEC (12.0-14.7)
[2017-10-19 12:47] LABS: D-Dimer Test 2.56 *mcg/mL (0.27-0.43)
[2017-10-19 12:55] LABS: ALT (SGPT) 22 U/L (8-55); AST (SGOT) 21 U/L (5-34); Albumin 4.4 g/dL (3.4-4.8); Alkaline Phosphatase 95 U/L (40-150); Anion Gap 17 mmol/L (10-20); BUN (Urea Nitrogen) 11 mg/dL (8.4-25.7); Bilirubin, Total 0.5 mg/dL (0.2-1.2); Calc. Creatinine Clearance 0 mL/min (70-130); Carbon Dioxide 20 mmol/L (23-31); Chloride 105 mmol/L (98-107); Estimated GFR-MDRD 67; Globulin 2.9 g/dL (2.4-3.5); Glucose 131 mg/dL (80-115); Potassium 3.9 mmol/L (3.5-5.1); Protein, Total 7.3 g/dL (5.8-8.1); Sodium 138 mmol/L (136-145)
[2017-10-19 12:58] LABS: CKMB 1.4 ng/mL (0-6.6); Troponin I Less than 0.010 ng/mL (< 0.028)
--- NOTE | 2017-10-19 14:05 | CT ---
CT BRAIN WITHOUT CONTRAST: Date: 10/19/17 HISTORY: New onset seizure. History of traumatic brain injury, ROUGH RICE TENDER shunt. FINDINGS: Comparison made with exam of 09/02/17. Encephalomalacia of the right frontal lobe and the right frontoparietal craniotomy are again seen. Th e right posterior parietal approach ventriculostomy with tip in the frontal horn of the right lateral ventricle is unchanged in position. A small amount of intraventricular air is again seen. Mild extra -axial hyperdensity overlying the right convexity is stable. No evidence of acute infarct, hemorrhage , midline shift, or new abnormal extra-axial fluid collections are noted. IMPRESSION: Stable exam. No acute process. POS: [facility]
--- NOTE | 2017-10-19 14:28 | RAD ---
SHUNTOGRAM: Date: 10/19/17 HISTORY: New onset seizure. History of traumatic brain injury. FINDINGS/IMPRESSION: Comparison made with exam of 09/02/17. Two views of the skull, single view of the neck, chest, abdomen, and pelvis were obtained. There are postop changes of right craniotomy with a right-sided ventriculoperitoneal shunt with the s uperior and the frontal region to the right of midline. The shunt tubing descends along the right side of the neck and into the chest and the right side of t he abdomen, loops in the distal abdomen/pelvis, with tip projected superiorly in the left lower quadr ant. The shunt tubing is intact. The heart size is borderline. There is pulmonary vascular congestion. No pneumothoraces or large effu sions are seen. The bowel gas pattern is unremarkable. There are degenerative changes in the spine. POS: [facility]
--- NOTE | 2017-10-19 15:29 | CT ---
CT PULMONARY ANGIOGRAM WITH IV CONTRAST AND 3D POSTPROCESSING: Date: 10/19/17 HISTORY: Elevated D-Dimer, tachycardia. FINDINGS: No filling defects are seen in the well opacified pulmonary arterial vasculature to suggest pulmonary embolism. There are vascular calcifications without evidence of thoracic aortic aneurysm or dissecti on. No pleural or pericardial effusions are seen. There are dependent changes of the posterior lung f ields. There are degenerative changes in the spine. IMPRESSION: No CT evidence of pulmonary embolism. POS: [facility]
[2017-10-19] MEDS ORDERED: Ondansetron HCl/PF 4 MG/2 ML Vial IVP PRN ×2 (17:55→18:32)
[2017-10-19] MEDS ORDERED: Acetaminophen 325 MG TAB PO PRN (17:55)
[2017-10-19] MEDS ORDERED: Ondansetron ODT 4 MG TAB SL PRN (17:55)
[2017-10-19] MEDS ORDERED: Lorazepam 2 MG/ML VIAL SLOW IVP PRN ×2 (17:56→18:32)
[2017-10-19 18:21] VITALS: BMI 32.8
[2017-10-19 18:26] LABS: Lactic Acid 1.6 mmol/L (0.5-2.2)
[2017-10-19] MEDS ORDERED: cloNIDine 0.1 MG TAB PO PRN (18:32)
[2017-10-19] MEDS ORDERED: hydrALAZINE 20 MG/ML VIAL SLOW IVP PRN (18:32)
[2017-10-19] MEDS ORDERED: Ondansetron ODT 4 MG TAB PO PRN (18:32)
[2017-10-19] MEDS ORDERED: Acetaminophen 500 MG TAB PO PRN (18:32)
--- NOTE | 2017-10-19 19:29 | CON ---
DATE OF CONSULTATION: 10/19/2017 HISTORY OF PRESENT ILLNESS: Mr. Negron is a 62-year-old male who has a history of 8 months out fro m a TBI, in which he received a frontotemporal parietal craniotomy for expanding subdural hematoma wi th midline shift after traumatic brain injury from a kick in the head by his horse. This was on 10/2016. 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 His shunt on exam today is compressible. There is no tenderness around the shunt. He comes in today for breakthr ough seizure that he had at [facility]. Witnesses say that he stared off. He was staring off and was un responsive and got very tense and held his breath and turned purple in the face. This lasted for ran ge of 3-5 minutes. Mr. Negron does not remember any of that today. This was witnessed by his son and some members at his [facility]. He is currently in therapy at here in [place], recovering from a tra umatic brain injury in 01/2017. He has been doing well; however, this is his first seizure. He was taking levetiracetam after the traumatic brain injury and was taken off that in 02/2017 and has been on gabapentin until about a month ago. He has been seeing Dr. De Oliveira in Neurology for symptoms of h eadache and status post traumatic brain injury. PHYSICAL EXAMINATION: NEUROLOGIC: Today, he is neurologically intact. He answers my questions appropriately, has a GCS of 15. His prolactin levels and lactate levels were mildly elevated and he describes a postictal phase . Neurosurgery was consulted because he is a former patient of ours and to assess the ventriculoperi toneal shunt and head CT. After head had CT today had showed stable exam, no acute process. Shuntog theodore from today shows that the ventriculoperitoneal shunt tubing descends along the right side of the neck and into the chest and the right side of the abdomen, loops in the distal abdomen and pelvis and the tip projected superiorly in the left lower quadrant. The shunt tubing is intact. The patient d enies any chest pain, shortness breath or fevers. ALLERGIES: No known drug allergies. CURRENT MEDICATIONS: 1. Amantadine HCL 100 mg oral once a day. 2. Levothyroxine 100 mcg oral. 3. Melatonin 3 mg oral once a day in the evening. 4. Mirtazapine 15 mg oral, 0.5 tablet oral once a day. 5. Pantoprazole delayed release strength 40 mg oral. 6. Senna 8.6 mg oral, 3 tabs oral once a day. 7. Losartan 50 mg oral once a day. PAST MEDICAL HISTORY: Includes hypothyroidism, hypertension, malignancy tonsillar cancer, traumatic brain injury, skull fracture with fluid on the inside of his brain, ventriculoperitoneal shunt, hydro cephalus. Shunt was placed on 06/17/2017. He also had a cranioplasty. PAST SURGICAL HISTORY: Bilateral lens replaced in 10/2016, appendectomy, tonsillectomy in 2007, cran iotomy on 01/25/[address] Vivas. PSYCHIATRIC HISTORY: Depression. SOCIAL HISTORY: The patient drinks everyday, less than 5 drinks per day. He denies any drug use. C hews tobacco occasionally. REVIEW OF SYSTEMS: The patient reports a postictal phase. Witnesses report seizure activity this mo rning at [facility]. All other review of systems are negative, unless stated in the above HPI. PHYSICAL EXAMINATION: HEENT: Normocephalic, atraumatic. Hearing intact. Moist mucous membranes. Trachea is midline. 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 VITAL SIGNS: He is afebrile. GENERAL: He is in no apparent distress and oriented to person, place and time. EYES: Pupils are equal and reactive to light. Extraocular muscles are intact. Sclerae is white, no nicteric. NECK: Neck is supple. Normal range of motion. Trachea is midline. RESPIRATORY: The patient has bilateral symmetric chest rise. Appears to have no shortness of breath . CARDIOVASCULAR: The patient has regular rate and rhythm, normal S1, S2 heart sounds, no distal cyano sis or clubbing noted. ABDOMEN: The patient is tender to the abdomen. Bowel sounds are normal. No masses, no pulsatile ma sses. BACK: Normal findings. Normal range of motion. SKIN: Normal. EXTREMITIES: Upper and lower extremity: He has good strength bilaterally in the upper and lower ext remities bilaterally. There are no focal motor or sensory deficits. NEUROLOGIC: Cranial nerves II-XII are grossly intact. Speech is fluent. He answers my questions ap propriately. GCS of 15. ASSESSMENT: Mr. Negron is a patient of ours that has had a previous craniotomy in 2017, followed b y a ventriculoperitoneal shunt placement in 05/2017 and cranioplasty thereafter. Head CT is negative without contrast. X-ray shuntogram is negative and CT of the chest and angio is negative. PLAN: I will have Dr. De Oliveira in Neurology see the patient and have Medicine team admit the patient for breakthrough seizure. There is no neurosurgical indication at this time. If there are any furth er questions, please feel free to contact Neurosurgery.
[2017-10-19] MEDS ORDERED: Mirtazapine 15 MG TAB PO SCH (21:00)
[2017-10-19] MEDS ORDERED: Melatonin 3 MG TAB PO SCH (21:00)
--- NOTE | 2017-10-19 21:26 | HP ---
DATE OF ADMISSION: 10/19/2017 PRIMARY CARE PHYSICIAN: Dr. Arlin Lora. PRIMARY NEUROLOGIST: Dr. Abdi De Oliveira. CHIEF COMPLAINT: Seizure. HISTORY OF PRESENT ILLNESS: This is a 62-year-old male who presents to [facility] Emergency Department and transferred from [place], [place] after apparently sustaining a seizure while attending [facility]andaen services this morning. The patient states he was standing with a fri end near the back of the mandaen when he heard a loud music which startled him. The patient states he does not remember anything after this incident and was told by his friend that he grabbed by his fri end to hold him as he was seizing standing up. The patient was noted with labored breathing, seizure -like activity and was lowered to the ground without head injury. The patient states that he was carl d this lasted for approximately 5 minutes becoming alert, but not oriented on the scene. The patient denies any prior similar incidences in the past, but states he has a significant history of a trauma tic brain injury in 01/2017 after falling and striking his head on concrete. The patient developed a subarachnoid hemorrhage, hydrocephalus requiring craniotomy and eventual ventriculoperitoneal shunt placement. The patient states he has been in constant physical and occupational rehabilitation throu gh the [facility] and states he has had dramatic improvement in his overall functionality in the las t 3 weeks. The patient denies any other change to his medication regimen, fever, chills or exposure history. The patient does state that he was recently placed back on losartan for hypertension. The patient does state that he was previously on Keppra therapy after the initial brain injury, but was s ubsequently taken off the medication after several weeks. In the emergency department, the patient u nderwent general evaluation including CT of the brain showing encephalomalacia of the right frontal a nd right frontoparietal lobe with associated post-surgical changes consistent with craniotomy. Ventr iculostomy with VPS tip in the frontal horn of the right lateral ventricle was noted, but unchanged i n position. No acute process was identified. The patient also underwent shuntogram showing a normal functioning device. The patient received Ativan, Reglan, intravenous normal saline and Tylenol. Th e patient was referred to the stroke unit for further evaluation. PAST MEDICAL HISTORY: 1. Traumatic brain injuries status post closed head injury with subarachnoid hemorrhage. 2. Status post craniotomy. 3. Status post ventriculoperitoneal shunt placement. 4. Hypothyroidism. 5. Hypertension. 6. History of tonsillar malignancy status post resection. 7. Hydrocephalus, status post traumatic brain injury. PAST SURGICAL HISTORY: 1. Status post craniotomy. 2. Status post ventriculoperitoneal shunt placement. 3. Status post bilateral lens replacement. 4. Status post appendectomy. 5. Status post tonsillectomy. 6. Status post right wrist surgery. 7. Status post tympanostomy in the right ear. CURRENT MEDICATIONS: 1. Protonix 40 mg p.o. at bedtime. 2. Amantadine 50 mg p.o. daily. 3. Aspirin 81 mg p.o. daily. 4. Levothyroxine 100 mcg p.o. daily. 5. Losartan 50 mg p.o. daily. 6. Melatonin 3 mg p.o. at bedtime. 7. Remeron 7.5 mg p.o. at bedtime. 8. Senna 3 tabs p.o. daily. ALLERGIES: No known drug allergies. FAMILY HISTORY: No inheritable diseases per patient report. SOCIAL HISTORY: , residing in the [place], [place] area. Accompanied by his family in the hosp ital. No current alcohol, tobacco or illicit drug use. Ambulated with use of a cane until approxima tely 2 days prior to this evaluation. REVIEW OF SYSTEMS: The following complete review of systems was negative, unless otherwise mentioned in the HPI or below: Constitutional: Weight loss or gain, ability to conduct usual activities. Sk in: Rash, itching. Eyes: Double vision, pain. ENT/Mouth: Nose bleeding, neck stiffness, pain, te nderness. Cardiovascular: Palpitations, dyspnea on exertion, orthopnea. Respiratory: Shortness of breath, wheezing, cough, hemoptysis, fever or night sweats. Gastrointestinal: Poor appetite, abdom inal pain, heartburn, nausea, vomiting, constipation, or diarrhea. Genitourinary: Urgency, frequenc y, dysuria, nocturia. Musculoskeletal: Pain, swelling. Neurologic/Psychiatric: Anxiety, depression . Allergy/Immunologic: Skin rash, bleeding tendency. PHYSICAL EXAMINATION: VITAL SIGNS: Currently, blood pressure 129/78, pulse 74, respiratory rate 16, temperature 97.5 degre es Fahrenheit, O2 saturation 96% on room air. GENERAL APPEARANCE: This is a 62-year-old male, alert and oriented x3, pleasant, conversan t, smiling, in no acute distress. HEENT: Pupils are equal, round, and reactive to light and accommodation. Extraocular muscles are in tact. No scleral icterus, no conjunctival injection. Post-surgical changes in the right skull noted consistent with prior craniotomy. Nares patent. OP is clear. NECK: Supple, no cervical adenopathy, no thyromegaly, no carotid bruits, no JVD appreciated. Palpab le ventriculoperitoneal shunt device palpated in the right lateral neck. Cervical spine with full ac tive and passive range of motion. No meningeal signs appreciated. CHEST: Lungs are clear to auscultation bilaterally. CARDIOVASCULAR: S1, S2, without noted murmur. ABDOMEN: Rounded, soft, nontender, nondistended. Bowel sounds are positive in all four quadrants. There is no hepatosplenomegaly, no abdominal bruits, no rebound or guarding appreciated. EXTREMITIES: Warm and dry with fair turgor. No clubbing, cyanosis or asymmetric edema appreciated. Pulses are palpable distally at the dorsalis pedis, posterior tibial, and popliteal arteries bilater ally. Capillary refill less than 2 seconds. NEUROLOGIC: Cranial nerves II-XII are grossly intact. Mild left upper extremity weakness. The raul ent not observed ambulatory during this exam. PERTINENT LABORATORY AND X-RAY FINDINGS: Sodium 138, potassium 3.9, chloride 105, CO2 of 20, BUN 11, creatinine 1.10, estimated GFR 67, glucose 131. Lactic acid level 4.9, calcium 9.0. LFTs within no rmal limits. Troponin I negative x1. Prolactin level 19.5. CBC within normal limits. PT 13.2, INR 1.0, PTT 27.0. D-dimer 2.56. CT of the brain without contrast dated 10/19/2017 showed encephalomal acia of the right frontal lobe and right frontoparietal craniotomy changes. The ventriculostomy tip in the right frontal horn of the right lateral ventricle unchanged in position. No acute process nan ntified. Shuntogram performed on 10/19/2017 showed normal functioning device. CT angiogram of the c hest dated 10/19/2017 showed no evidence for pulmonary embolus. EKG dated 10/19/2017 by my interpret ation shows sinus tachycardia with heart rates in the low 100s. Attenuated R waves noted in the prec ordial leads. Left axis deviation. No acute ST-T wave changes appreciated. ASSESSMENT AND PLAN: 1. New-onset seizures. The patient will be placed in observation status on the stroke unit. We peyton l initiate Keppra 500 mg p.o. b.i.d. Consult Neurology Service for further evaluation and recommenda tions of management. Check TSH and magnesium level. Suspect secondary to previous traumatic brain i njury with current ventriculoperitoneal shunt. 2. Status post traumatic brain injury with craniotomy and subarachnoid hemorrhage with ventriculoper itoneal shunt. We will consult Neurosurgery service for evaluation. Current shuntogram showing norm al functioning device. 3. Hypothyroidism. We will check TSH level free T4 level. Continue levothyroxine 100 mcg p.o. amparo y. 4. Hypertension. Resume losartan 50 mg p.o. daily. Continue serial blood pressure monitoring. 5. Lactic acidosis. Secondarily to #1. Repeat level 1.6. 6. Prophylaxis. Sequential compression devices while in bed. Pepcid 20 mg p.o. b.i.d. PT, OT eval uation in the a.m. 7. CODE STATUS is FULL. Surrogate medical decision maker is patient's spouse.
[2017-10-19] MEDS: Famotidine 20 MG TAB PO SCH (22:01)
[2017-10-19] MEDS: levETIRAcetam 500 MG TAB PO SCH (22:02)
[2017-10-20 05:49] LABS: Anion Gap 11 mmol/L (10-20); BUN (Urea Nitrogen) 15 mg/dL (8.4-25.7); Calc. Creatinine Clearance 56 mL/min (70-130); Calcium 8.7 mg/dL (7.8-10.44); Carbon Dioxide 24 mmol/L (23-31); Chloride 106 mmol/L (98-107); Estimated GFR-MDRD 41; Glucose 103 mg/dL (80-115); Magnesium 2.7 mg/dL (1.6-2.6); Potassium 3.8 mmol/L (3.5-5.1); Sodium 137 mmol/L (136-145)
[2017-10-20 05:59] LABS: Free T4 (Free Thyroxine) 0.99 ng/dL (0.70-1.48); Thyroid Stimulating Hormone 1.8216 uIU/mL (0.35-4.94)
[2017-10-20] MEDS ORDERED: Levothyroxine Sodium 100 MCG TAB PO SCH (06:00)
[2017-10-20 06:11] LABS: Band 3 % (5-11); Eosinophils 1 % (0-10); Hemoglobin 14.9 g/dL (14.0-18.0); Lymphocytes 8 % (21-51); MDiff Complete? YES; Mean Corpuscular HGB CONC 34.4 g/dL (32.0-36.0); Mean Platelet Volume 6.1 fL (7.4-10.4); Monocytes 4 % (0-10); Neutrophil 84 % (42-75); PLT Morphology Comment Appears Adequate; Platelet Count 164 thou/uL (130-400); RBC Distribution Width 14.3 % (11.5-14.5); RBC Morphology Normal; White Blood Cell (WBC) Count 6.1 thou/uL (4.8-10.8)
--- NOTE | 2017-10-20 07:36 | PRG ---
DATE OF SERVICE: 10/20/2017 I personally interviewed and examined the patient and agree with documentation of Edmundo Alcazar PA-C, d ated 10/19/2017. Briefly, Nigel Negron is a patient known to our neurosurgery service. He was admitted to [facility] yesterday with seizure and has been watched overnight. Mr. Negron had a head injury from a horse last summer that required a craniectomy for ICP managemen t. Eventually the bone flap was replaced. He developed some hydrocephalus and a shunt. Eventually, the bone flap was replaced at the same time, we repaired a middle fossa fracture. The shunt needed to be placed for hydrocephalus. Mr. Negron has had a slow, but steady recovery. He had actually b een doing quite well over the past few weeks. There are no fevers, there is no abdominal pain. His neurological status is improving significantly, then he had a seizure. The seizure was generalized, he does not remember it. His was understandably upset about the seizure. Keppra was started an d he has been seizure free overnight. This morning, Mr. Negron feels tired and sore, but otherwise he is awake and alert. He wants his breakfast menu, he would like to order some food. He is having some soreness from the seizure, but no significant pain. CT imaging of the brain looked reasonably good and the shunt is working well. Recorder vital signs are all stable. On neurological examination cranial nerves are intact. There i s no lateralizing motor or sensory deficits other than some mild upper motor neuron weakness on the l eft body that he has had since his injury. My plan for Mr. Negron is to remain on antiepileptic drugs for at least a year before trying to wea n off again, he may need them indefinitely. We will follow up in neurosurgery clinic if he has issue s going forward.
[2017-10-20] MEDS ORDERED: Amantadine HCl 10 mg/ml Oral Solution PO SCH (09:00)
[2017-10-20] MEDS ORDERED: Losartan 25 MG TAB PO SCH (09:00)
[2017-10-20] MEDS ORDERED: Senokot 8.6 MG TAB PO SCH (09:00)
[2017-10-20] MEDS: levETIRAcetam 500 MG TAB PO SCH (09:04)
[2017-10-20] MEDS: Famotidine 20 MG TAB PO SCH (09:04)
[2017-10-20] MEDS ORDERED: traMADol HCl 50 MG TAB PO PRN (11:31)
[2017-10-20] MEDS ORDERED: Acetaminophen/Codeine 30-300mg Tablet PO PRN (11:32)
[2017-10-20 16:14] VITALS: TEMP 98
[2017-10-20 17:03] VITALS: BP 139/92
--- NOTE | 2017-10-20 20:46 | CON ---
NEUROLOGIC FOLLOWUP NOTE DATE OF CONSULTATION: 10/20/2017 IMPRESSION: New onset seizure secondary to old area of encephalomalacia from prior subarachnoid hemo rrhage. PLAN: 1. Keppra 500 mg twice a day. 2. Office followup. Mr. Negron is a new patient of mine with past history of subarachnoid hemorrhage requiring cranioto my and [employer]EE CONSULTANT shunting. He was on Keppra until May. It was discontinued at that point and he has do ne fairly well. He was in restorationism when he suddenly lost consciousness and had a witnessed seizure. H is CT of the brain showed an old area of frontal encephalomalacia. He is feeling back to his normal state now. I will be happy to follow up with him in the office.
--- NOTE | 2017-10-21 02:09 | DIS ---
DATE OF ADMISSION: 10/19/2017 DATE OF DISCHARGE: 10/20/2017 DISCHARGE DIAGNOSES: 1. New-onset seizures, stable. 2. Status post traumatic brain injury with craniotomy and subarachnoid hemorrhage with ventriculoper itoneal shunt. 3. Hypothyroidism. 4. Hypertension, stable. 5. Lactic acidosis secondary to #1. CONSULTATIONS: Dr. Vivas with Neurosurgical Service. Dr. De Oliveira with Neurology Service. PERTINENT LABORATORY AND X-RAY FINDINGS: Lactic acid level ranged between 1.6-4.9, magnesium level 2 .7. LFTs within normal limits. Albumin 4.4. TSH 1.82, free T4 0.99. Prolactin level 19.48. CBC w ithin normal limits. CT of the brain without contrast dated 10/19/2017 showed no acute intracranial process. Chronic changes consistent with prior surgical intervention and craniotomy noted. Shuntogr am dated 10/19/2017 showed normal functioning device. CT angiogram of the chest dated 10/19/2017 cameron wed no evidence for pulmonary embolus. HOSPITAL COURSE: The patient was observed on the stroke unit after initially presenting status post new-onset seizure. The patient's history is significant for a prior traumatic brain injury with suba rachnoid hemorrhage requiring craniotomy and eventual ventriculoperitoneal shunt placement due to hyd rocephalus. The patient was initiated on Keppra 500 mg b.i.d. and exhibited no evidence of recurrent seizures during the hospital course. The patient was evaluated by the Neurosurgical Service without recommendations for an acute intervention as patient's ventricular peritoneal shunt was noted to be functioning appropriately. The patient also evaluated by the Neurology Service with recommendations to continue Keppra 500 mg b.i.d. and to follow up on an outpatient basis. Overall, the patient remai staci clinically stable during the hospital course with telemetry monitoring showing no evidence of acu te arrhythmia or dysrhythmia, and sinus mechanism noted throughout the hospital stay. The patient is overall clinically stable and ready for discharge 10/20/2017. DISCHARGE MEDICATIONS: 1. Keppra 500 mg 1 tab p.o. b.i.d. 2. Tylenol #3 of 300/30 mg 1 tab p.o. q.6 hours p.r.n. pain. 4. Tramadol 50 mg p.o. q.i.d. p.r.n. 5. Amantadine 50 mg p.o. daily. 6. Aspirin 81 mg 1 tab p.o. daily. 7. Flexeril 10 mg p.o. t.i.d. p.r.n. 8. Levothyroxine 100 mcg 1 tab p.o. daily. 9. Losartan 50 mg p.o. daily. 10. Melatonin 3 mg p.o. at bedtime. 11. Remeron 7.5 mg p.o. at bedtime. 12. Protonix 40 mg p.o. at bedtime. 13. Senna 3 tablets p.o. daily. FOLLOWUP: Patient will follow up with his primary care provider, Dr. Arlin Lora within 7 days o f discharge. The patient may follow with Dr. Abdi De Oliveira with Neurology Service and to call his off ice for appointment time and date. CONDITION ON DISCHARGE: Stable. ACTIVITY: Ad june. No driving until cleared by Neurology Service. DIET: Heart healthy. CODE STATUS: FULL. DISPOSITION: Home on 10/20/2017.
--- NOTE | 2017-10-25 13:22 | EKG ---
Test Reason : Blood Pressure : / mmHG Vent. Rate : 107 BPM Atrial Rate : 107 BPM P-R Int : 200 ms QRS Dur : 084 ms QT Int : 328 ms P-R-T Axes : 037 -28 061 degrees QTc Int : 437 ms Sinus tachycardia Nonspecific T wave abnormality Abnormal ECG Confirmed by VITOR DANIELS ([id number]), editorial assistant DALE BLANKENSHIP ([id number]) on 10/25/2017 1:22:25 PM Referred By: Confirmed By:VITOR DANIELS
== END 2017-10-20 18:09 | disposition home or self-care (01) ==
LOC: ERS 11:56 → 2SE 17:51
PROVIDERS: ADMIT Family Medicine; ATTEND Family Medicine
DX: R56.9 Unspecified convulsions (principal); E03.9 Hypothyroidism, unspecified; I10 Essential (primary) hypertension; E87.2 Acidosis; F32.9 Major depressive disorder, single episode, unspecified; F17.220 Nicotine dependence, chewing tobacco, uncomplicated; Z79.82 Long term (current) use of aspirin; Z79.899 Other long term (current) drug therapy; Z96.1 Presence of intraocular lens; Z90.49 Acquired absence of other specified parts of digestive tract; Z90.89 Acquired absence of other organs; Z98.890 Other specified postprocedural states; Z85.89 Personal history of malignant neoplasm of other organs and systems; Z87.820 Personal history of traumatic brain injury
CPT/HCPCS: 36415; 70450; 71275; 75809; 80048; 80053; 82553; 83605; 83735; 84146; 84439; 84443; 84484; 85007; 85025; 85027; 85379; 85610; 85730; 93005; 96365; 96375; G0378; G8978-GP-CI; G8979-GP-CI; G8980-GP-CI; G8987-GO-CJ; G8988-GO-CI; J2060; J2765

== ENCOUNTER 2017-12-19 13:25 | Observation (INO) | payer BC ==
[2017-12-19] MEDS ORDERED: Labetalol HCl 100 MG/20 ML VIAL SLOW IVP PRN (14:58)
[2017-12-19] MEDS ORDERED: Bisacodyl 5 MG TAB PO PRN (14:58)
[2017-12-19] MEDS ORDERED: Enalaprilat Dihydrate 1.25 MG/ML VIAL SLOW IVP PRN (14:58)
[2017-12-19] MEDS ORDERED: hydrALAZINE 20 MG/ML VIAL SLOW IVP PRN (14:58)
[2017-12-19 15:24] VITALS: BMI 31.1
--- NOTE | 2017-12-19 15:34 | HP ---
PRIMARY CARE PROVIDER: Arlin Lora D.O. CHIEF COMPLAINT: Slurred speech. HISTORY OF PRESENT ILLNESS: Mr. Negron is a pleasant 62-year-old gentleman who was seen at [facility] on 12/14/2017 following transfer from [facility]. The patient had slurred speech, on and off over the last 1 week. He denies any weakness. He denies any visual symptoms. He denies any numbness. He denies any nausea or vomiting. He presented to the emergency room at [facility] in [place] and a CT scan there showed an age indeterminate infarct in the right frontal region. REVIEW OF SYSTEMS: All other systems reviewed and found to be negative. PAST MEDICAL HISTORY: Significant for traumatic brain injury, status post closed head injury with subarachnoid hemorrhage, status post craniotomy, status post TRIAL JUDGE shunt placement, hypothyroidism, hypertension, tonsillar malignancy, status post resection, hydrocephalus, status post traumatic brain injury. PAST SURGICAL HISTORY: Craniotomy, TRIAL JUDGE shunt placement, bilateral lens replacement, appendectomy, tonsillectomy, right wrist surgery and tympanostomy in the right ear. ALLERGIES: No known drug allergies. CURRENT MEDICATIONS: Include docusate 100 mg 2 times a day, gabapentin 300 mg 3 times a day, levothyroxine 100 mcg daily, melatonin 3 mg every evening, mirtazapine 7.5 mg at bedtime, Protonix 40 mg at bedtime, senna 8.6 mg tablets 3 tablets at noon, losartan 50 mg daily, aspirin 81 mg daily, Keppra 500 mg in the morning and 750 mg in the evening, Lyrica 150 mg daily, Flexeril 10 mg as needed, and Tylenol #3 as needed. SOCIAL HISTORY: The patient drinks alcohol on a daily basis. He chews tobacco. He denies recreational drug use. FAMILY HISTORY: No family history of premature coronary artery disease. PHYSICAL EXAMINATION: GENERAL: On examination, Mr. Negron is awake and alert, not in acute distress. VITAL SIGNS: Blood pressure is 152/96, pulse is 66, he is breathing at rate of 18, and saturating 96% on room air. He is afebrile. EYES: No scleral icterus. No conjunctival pallor. ENT: Moist mucosal membranes, no oropharyngeal erythema or exudates. NECK: Supple, nontender, normal range of movement and trachea is midline. RESPIRATORY: Accessory muscles of breathing are not active. Chest wall movements are symmetric bilaterally. LUNGS: Clear to auscultation without wheeze, rhonchi or crepitations. CARDIOVASCULAR: S1 and S2 are heard, regular. Peripheral pulses palpable. No carotid bruit, no pericardial rub. ABDOMEN: Soft, nontender, bowel sounds are heard, no hepatomegaly, no splenomegaly. NEUROLOGIC: Patient has slightly slurred speech. He also has a mild left facial droop. Otherwise, cranial nerves II-XII intact. No other focal motor or sensory deficits. Deep tendon reflexes 2+, plantar reflexes downgoing bilaterally. MUSCULOSKELETAL: Power is 5/5 in all 4 extremities. SKIN: No rashes or subcutaneous nodules. LYMPHATIC: No cervical lymphadenopathy. PSYCHIATRIC: Normal mood, normal affect, patient is oriented to person, place, and time. IMAGING DATA AND LABORATORY DATA: Mr. Negron's labs and investigations were reviewed. At [facility], he had x-ray of the shunt series with chest and abdomen, shunt catheter appeared intact. He also had a CT scan of the head without contrast, which showed 2 new areas of hypodensity in the right frontal lobe which could reflect recent ischemia. Ventricles were slightly prominent, but decreased in size from prior exam. He has leukopenia with 4,400 white cells, normal hemoglobin, normal platelet count, normal albumin, normal electrolytes, normal liver profile and normal creatinine. Urinalysis was negative for nitrate and leukocyte esterase. ASSESSMENT AND PLAN: Mr. Negron is a pleasant 62-year-old gentleman who was seen at [facility] on 12/19/2017. His problem list includes: 1. Slurred speech: He reports that his speech is improving, it has been going on for 1 week. He will be admitted to the hospital for further management including 2D echocardiogram and carotid Dopplers. He will be monitored on telemetry. We will continue aspirin and start him on statin. 2. Cerebrovascular accident: Age indeterminate, we will continue aspirin and start statin. We will also check fasting lipid profile. We will check 2D echocardiogram and carotid Dopplers. 3. History of traumatic brain injury: Patient appears clinically stable. 4. Hypertension: Monitor vital signs, titrate antihypertensives as needed. 5. Hypothyroidism: Continue Synthroid. Many thanks for allowing me to participate in your patient's care. Please feel free to contact me with any questions or concerns. MARYLIN
--- NOTE | 2017-12-19 18:02 | ULT ---
BILATERAL CAROTID DUPLEX ULTRASOUND: 12/19/17 HISTORY: CVA. TECHNIQUE: Valdivia scale, with color flow and spectral doppler imaging of the extracranial carotid artery systems i s performed bilaterally. FINDINGS: There is plaque formation on either side. The peak systolic velocity in the right ICA measures 60 cm/s with an end diastolic velocity of 25 cm/ s and systolic ratio of 0.92. The peak systolic velocity in the left ICA measures 58 cm/s with an end diastolic velocity of 19 cm/s and systolic ratio of 0.51. Flow in both vertebral arteries remains antegrade. IMPRESSION: No evidence of hemodynamically significant stenosis. POS: [facility]
[2017-12-19] MEDS: Atorvastatin Calcium 10 MG TAB PO SCH (21:34)
[2017-12-19] MEDS ORDERED: levETIRAcetam 500 MG TAB PO SCH (22:45)
[2017-12-20 05:12] LABS: #Eosinphils 0.1 thou/uL (0.0-0.7); #Monocytes 0.4 thou/uL (0.11-0.59); #Neutrophils 2.6 thou/uL (1.40-6.50); %Basophils 0.5 % (0.0-1.0); %Eosinophils 2.5 % (0.0-10.0); %Lymphocytes 23.1 % (21.0-51.0); %Monocytes 9.9 % (0.0-10.0); Hemoglobin 16.4 g/dL (14.0-18.0); Mean Corpuscular HGB CONC 35.3 g/dL (32.0-36.0); Mean Corpuscular Volume 93.4 fl (80.0-94.0); Mean Platelet Volume 6.3 fL (7.4-10.4); Platelet Count 198 thou/uL (130-400); RBC Distribution Width 13.1 % (11.5-14.5); Red Blood Cell (RBC) Count 4.97 mill/uL (4.70-6.10); White Blood Cell (WBC) Count 4.1 thou/uL (4.8-10.8)
[2017-12-20 05:27] LABS: Anion Gap 10 mmol/L (10-20); BUN (Urea Nitrogen) 13 mg/dL (8.4-25.7); Calc. Creatinine Clearance 116 mL/min (70-130); Calcium 8.7 mg/dL (7.8-10.44); Carbon Dioxide 24 mmol/L (23-31); Cardiac Risk 4.9 (Less than 4.5); Chloride 110 mmol/L (98-107); Cholesterol 194 mg/dl (< 200 Desired); Estimated GFR-MDRD Greater than 90; Glucose 103 mg/dL (80-115); HDL Cholesterol 40 mg/dL (>60 Neg Risk); LDL Cholesterol, Calculated 118 mg/dL; Potassium 3.7 mmol/L (3.5-5.1); Sodium 140 mmol/L (136-145); Triglycerides 179 mg/dL (Less than 150)
[2017-12-20] MEDS: Enoxaparin Sodium 40 MG/0.4 ML SYRINGE SC SCH (10:00)
--- NOTE | 2017-12-20 10:05 | PDOC.PN ---
- Subjective Encounter Start Date: 12/20/17 Encounter Start Time: 07:00 Pt seen for followup re: CVA. Denies chest pain, shortness of breath, fevers or chills. - Objective MAR Reviewed: Yes Vital Signs & Weight: Vital Signs (12 hours) Temp Pulse Resp BP BP Pulse Ox 12/20/17 08:00 98.5 F 70 14 145/86 H 12/20/17 07:00 98.5 F 70 14 145/86 H 95 12/20/17 05:47 94 L 12/20/17 03:26 97.6 F 68 12 113/84 94 L 12/19/17 23:21 97.5 F L 66 16 151/104 H 97 Weight Weight 205 lb 14.4 oz I&O: 12/19/17 12/20/17 12/21/17 06:59 06:59 06:59 Intake Total 500 Balance 500 Result Diagrams: 12/20/17 04:39 12/20/17 04:39 EKG Reviewed by me: Yes (Tele: NSR) Phys Exam - Physical Examination Obese HEENT: moist MMs, sclera anicteric, oral pharynx no lesions, 2+ tonsils Neck: no nodes, no JVD, supple, full ROM Respiratory: no wheezing, no rales, no rhonchi, clear to auscultation bilateral Cardiovascular: RRR, no rub Gastrointestinal: soft, non-tender, no distention, positive bowel sounds Musculoskeletal: pulses present Neurological: non-focal, normal sensation, moves all 4 limbs Psychiatric: normal affect, A&O x 3 Skin: no rash Dx/Plan (1) Ischemic cerebrovascular accident (CVA) Code(s): I63.9 - CEREBRAL INFARCTION, UNSPECIFIED Status: Acute Comment: await carotid dopplers, 2D echo. Neurology not consulted due to patient's request. Continue aspirin and statin. (2) HTN (hypertension) Code(s): I10 - ESSENTIAL (PRIMARY) HYPERTENSION Status: Chronic Comment: Monitor vital signs, titrate antihypertensives as needed (3) Hypothyroidism Code(s): E03.9 - HYPOTHYROIDISM, UNSPECIFIED Status: Chronic Comment: continue synthroid (4) H/O traumatic brain injury Code(s): Z87.820 - PERSONAL HISTORY OF TRAUMATIC BRAIN INJURY Status: Chronic Comment: Pt has CONGRESSIONAL DISTRICT AIDE shunt, will consult neurosurgery for opinion - Plan * . Review of Systems - Review of Systems Eyes: negative: Pain, Vision Change, Conjunctivae Inflammation, Eyelid Inflammation, Redness Respiratory: negative: Cough, Shortness of Breath, SOB with Excertion, Pleuritic Pain, Wheezing Cardiovascular: negative: chest pain, palpitations, orthopnea, paroxysmal nocturnal dyspnea, edema, light headedness Gastrointestinal: negative: Nausea, Vomiting, Abdominal Pain, Diarrhea, Constipation, Melena, Hematochezia Neurological: Change in Speech. negative: Weakness, Numbness, Incoordination, Confusion, Seizures - Medications/Allergies Allergies/Adverse Reactions: Allergies Allergy/AdvReac Type Severity Reaction Status Date / Time No Known Drug Allergies Allergy Verified 06/16/17 23:15 Medications: Current Medications Atorvastatin Calcium (Lipitor) 10 mg PO HS [facility] Last Admin: 12/19/17 21:34 Dose: 10 mg Bisacodyl (Dulcolax) 10 mg PO DAILYPRN PRN PRN Reason: Constipation Enalaprilat (Vasotec) 1.25 mg SLOW IVP Q6H PRN PRN Reason: BP > 220/110 Enoxaparin Sodium (Lovenox) 40 mg SC 0900 [facility] Last Admin: 12/20/17 10:00 Dose: 40 mg Hydralazine HCl (Apresoline) 10 mg SLOW IVP Q4H PRN PRN Reason: BP > 220/110 Labetalol HCl (Normodyne) 20 mg SLOW IVP Q1H PRN PRN Reason: BP > 220/110
[2017-12-20] MEDS ORDERED: Polyethylene Glycol 3350 17 GM Packet PO PRN (10:36)
[2017-12-20] MEDS ORDERED: Cyclobenzaprine 10 MG TAB PO PRN (10:36)
[2017-12-20] MEDS ORDERED: Acetaminophen/Codeine 30-300mg Tablet PO PRN (10:36)
[2017-12-20] MEDS ORDERED: Gadobenate Dimeglumine 529 MG/1 ML (20ML VIAL) ONE (15:27)
--- NOTE | 2017-12-20 15:56 | MRI ---
MRI BRAIN WITH AND WITHOUT CONTRAST: DATE: 12/20/17 HISTORY: 62-year-old male with history of prior skull fracture. Now with stroke-like symptoms. COMPARISON: There are multiple prior brain CTs, but there are no prior brain MRIs. Most recent noncontrast brain CT was 10/19/17. TECHNIQUE: Multiple sequences obtained in axial, sagittal, and coronal planes; pre and post IV injection of gado linium-based contrast agent: MultiHance. FINDINGS: ANALYSIS ANALYST shunt catheter enters through right michael hole very close to the right occipital suture, traverses the right parieto-occipital brain parenchyma, enters the posterior body or trigone of the right late ral ventricle, with distal tip at midline just external to the anterior upper body of the right later al ventricle. The third and lateral ventricles are minimally dilated. No signs of obstructive hydroce phalus. There is a moderate sized region of encephalomalacia and gliosis at the right anterior inferior front al lobe. There is a smaller such lesion in the contralateral left paramedian anterior inferior fronta l lobe. These involve the bilateral gyrus rectus and right orbital gyrus. There is diffusely increased pachymeningeal enhancement. This can be due to various causes, including pacchymeningitis, but in this case, it can be due to the previous craniotomy. No mass effect, midline shift or new extra-axial fluid collection. No dural venous sinus thrombosis. Demonstration of blood flow in the major arteries of the [place]. There is no evidence of ab normal enhancing intra-axial lesion. Right frontotemporoparietal old craniotomy changes. Track from previously removed ventriculostomy cat heter via right michael hole at the coronal suture. There is no restricted diffusion to indicate acute infarction. There are two parallel linear tracks i n the right frontal lobe parenchyma leading from the region of the right frontal michael hole to the ant erior body of the right lateral ventricle, surrounded by a halo of gliosis. 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 On the CT of 10/19/17, there was a thin right frontotemporoparietal subdural hematoma a few millimeter s in thickness, abutting the right craniotomy bone flap, perhaps presenting tiny postsurgical subdura l hematoma. There is asymmetrically greater pacchymeningeal enhancement along that side on the curren t MRI, but no there is no definite evidence of an acute subdural hematoma currently. This represents site of either previously removed ventriculostomy catheters, or currently existing ventriculostomy ca theters that were placed sometime after the previous CT of 10/19/17. IMPRESSION: 1. Ventriculostomy catheter entering through the right parieto-occipital michael hole. 2. There are either current ventriculostomy catheter(s) or tracks form previously removed ones, entering via right frontoparietal michael hole, with surrounding gliosis or edema in the right frontal l obe parenchyma. 3. Encephalomalacia and gliosis representing previous traumatic brain injury in the anterior inf erior aspects of the bilateral frontal lobes, right greater than left. 4. Old right frontotemporoparietal craniotomy changes. 5. No evidence of acute infarction. CARLEEN Roberts POS: [facility]
[2017-12-20] MEDS ORDERED: Mirtazapine 15 MG TAB PO SCH (21:00)
[2017-12-20] MEDS ORDERED: Melatonin 3 MG TAB PO SCH (21:00)
[2017-12-20] MEDS ORDERED: levETIRAcetam 500 MG TAB PO SCH (21:00)
[2017-12-20] MEDS: Losartan 25 MG TAB PO SCH (21:28)
[2017-12-20] MEDS: Pregabalin 75 MG CAP PO SCH (21:29)
[2017-12-20] MEDS: Atorvastatin Calcium 10 MG TAB PO SCH (21:31)
[2017-12-21] MEDS ORDERED: Acetaminophen 325 MG TAB PO PRN (01:15)
[2017-12-21 05:03] LABS: #Eosinphils 0.1 thou/uL (0.0-0.7); #Lymphocytes 1.1 thou/uL (1.20-3.40); #Monocytes 0.4 thou/uL (0.11-0.59); #Neutrophils 3.4 thou/uL (1.40-6.50); %Basophils 0.3 % (0.0-1.0); %Eosinophils 2.5 % (0.0-10.0); %Lymphocytes 21.7 % (21.0-51.0); %Monocytes 8.3 % (0.0-10.0); %Neutrophils 67.2 % (42.0-75.0); Hemoglobin 16.1 g/dL (14.0-18.0); Mean Corpuscular HGB CONC 35.5 g/dL (32.0-36.0); Mean Corpuscular Hemoglobin 32.5 pg (27.0-31.0); Mean Corpuscular Volume 91.4 fl (80.0-94.0); Mean Platelet Volume 5.7 fL (7.4-10.4); Platelet Count 190 thou/uL (130-400); RBC Distribution Width 12.7 % (11.5-14.5); Red Blood Cell (RBC) Count 4.97 mill/uL (4.70-6.10)
[2017-12-21 05:24] LABS: Anion Gap 11 mmol/L (10-20); BUN (Urea Nitrogen) 12 mg/dL (8.4-25.7); Calc. Creatinine Clearance 112 mL/min (70-130); Calcium 8.5 mg/dL (7.8-10.44); Carbon Dioxide 26 mmol/L (23-31); Chloride 106 mmol/L (98-107); Estimated GFR-MDRD 85; Glucose 97 mg/dL (80-115); Potassium 3.7 mmol/L (3.5-5.1); Sodium 139 mmol/L (136-145)
[2017-12-21] MEDS ORDERED: Levothyroxine Sodium 100 MCG TAB PO SCH (06:00)
[2017-12-21 08:06] VITALS: BP 162/101; TEMP 97.7
[2017-12-21] MEDS ORDERED: Senokot 8.6 MG TAB PO SCH (09:00)
[2017-12-21] MEDS ORDERED: levETIRAcetam 500 MG TAB PO SCH (09:00)
[2017-12-21] MEDS: Enoxaparin Sodium 40 MG/0.4 ML SYRINGE SC SCH (09:34)
[2017-12-21] MEDS: Pregabalin 75 MG CAP PO SCH (09:35)
[2017-12-21] MEDS: Losartan 25 MG TAB PO SCH (09:35)
--- NOTE | 2017-12-23 15:57 | DIS ---
DATE OF ADMISSION: 12/19/2017 DATE OF DISCHARGE: 12/21/2017 PRIMARY CARE PROVIDER: Arlin Lora D.O. DISCHARGE DIAGNOSIS: Transient ischemic attack/cerebrovascular accident, suspected. CONDITION OF THE PATIENT AT THE TIME OF DISCHARGE: Stable. I assessed Mr. Negron on the day of . He denies any chest pain or shortness of breath. Speech is normal. Vital signs are stable . S1 and S2 are heard, regular. Lungs are clear to auscultation bilaterally. DISCHARGE MEDICATIONS: He has been started on atorvastatin 10 mg daily. Otherwise, his home medicat ions will be continued as dictated on history and physical note from 12/19/2017. INVESTIGATIONS DURING THIS HOSPITALIZATION: 1. Carotid Dopplers on 12/19/2017, which did not show any evidence of hemodynamically significant st enosis. 2. A 2D echocardiogram on 12/20/2017, which showed left ventricular ejection fraction of 50% to 55%, E/A flow reversal suggestive of diastolic dysfunction, mildly dilated left atrium, mild mitral regur gitation, and mild triscuspid regurgitation. 3. MRI of the brain with and without contrast, which showed ventriculostomy catheter entering to the right parieto-occipital michael hole, encephalomalacia and gliosis representing traumatic brain injury in the anterior and inferior aspects of the bilateral frontal lobes, right greater than left, no evid ence of acute infarction, old right frontotemporal parietal craniotomy changes and either current anusha triculostomy catheters are tracts from previously removed via frontoparietal michael hole, with pedersen rrounding gliosis or edema in the right frontal lobe parenchyma. HOSPITAL COURSE: Mr. Negron is a pleasant 62-year-old gentleman, who was admitted to [facility] on 12/19/2017 for suspected TIA/CVA. He was transferred from an outside community hospital because of suspected frontal lobe infarcts. I discussed his case with neurosurgeon on-call, who re viewed his old imaging and reported that he had these lesions in the past as well. He had stroke wor kup as described above. His symptoms resolved. He has been started on a statin and is being dischar ge home. During this hospitalization, he had triglycerides of 179, cholesterol 194, LDL cholesterol 118 and HD L cholesterol 40. Many thanks for allowing me to participate in your patient's care. Please feel free to contact me wi th any questions or concerns. DISCHARGE DESTINATION: Home. TOTAL AMOUNT OF TIME SPENT COORDINATING THIS DISCHARGE: 31 minutes.
== END 2017-12-21 10:47 | disposition home or self-care (01) ==
LOC: ERS 13:25 → 2SE 15:16
PROVIDERS: ADMIT Internal Medicine; ATTEND Internal Medicine
DX: R47.81 Slurred speech (principal); E03.9 Hypothyroidism, unspecified; I10 Essential (primary) hypertension; F17.220 Nicotine dependence, chewing tobacco, uncomplicated; Z87.820 Personal history of traumatic brain injury; Z79.82 Long term (current) use of aspirin; Z79.899 Other long term (current) drug therapy; Z98.2 Presence of cerebrospinal fluid drainage device; Z98.890 Other specified postprocedural states
CPT/HCPCS: 36415; 70553; 80048; 80061; 85025; 93306; 93880; 96372; 99285; A9579; G0378; G8978-GP-CJ; G8979-GP-CJ; G8980-GP-CJ; G8996-GN-CI; G8997-GN-CI; J1650

== ENCOUNTER 2020-09-22 09:22 | Outpatient (CLI) | payer MEDICARE | END 2020-09-22 09:23 | disposition home or self-care (01) | LOC: TBSIIMAG 09:22 | PROVIDERS: ATTEND Neurological Surgery | DX: G91.9 Hydrocephalus, unspecified (principal); G93.89 Other specified disorders of brain; S06.2X9D Diffuse traumatic brain injury with loss of consciousness of unspecified duration, subsequent encounter | CPT/HCPCS: 70450 ==